=== PATIENT | male | born 1995 | race African-American/Black ===

== ENCOUNTER 2020-10-30 08:15 | Emergency (ER) | payer SELFPAY ==
[2020-10-30 08:30] VITALS: BP 115/67; PULSE 73
[2020-10-30] MEDS ORDERED: Lidocaine 1% 10 ML MDV INJECT ONE (08:54)
--- NOTE | 2020-10-30 08:55 | EDM.PDOC ---
ED HPI GENERAL MEDICAL PROBLEM - General Chief Complaint: Laceration Stated Complaint: L HAND LAC Time Seen by Provider: 10/30/20 08:54 Source of Information: Reports: Patient History Limitations: Reports: No Limitations - History of Present Illness INITIAL COMMENTS - FREE TEXT/NARRATIVE: 25-year-old male of descent presents to the ED with an acute laceration to his left hand in the webspace between the thumb and index finger. He was opening a tin can with a knife and is not sure which one of them created the laceration I suspect it was the knife. Wound continues to actively bleed. Injury occurred rate around 0800 hrs. this morning. He describes no other injuries. Tetanus toxoid is up-to-date. Onset: Today, Sudden Onset Date: 10/30/20 Onset Time: 07:55 Duration: Minutes: Location: Reports: Upper Extremity, Left (Laceration first webspace ) Quality: Reports: Ache (left hand between index finger and thumb.) Severity: Mild Improves with: Reports: None Worsens with: Reports: None Context: Reports: Trauma. Denies: Activity, Exercise, Lifting, Sick Contact Associated Symptoms: Reports: No Other Symptoms (Slipped with a knife while opening a tin can.) Treatments SKI PATROL: Reports: Other (see below) (None.) Left Finger-Thumb Pain Score (Numeric/FACES): 7 - Related Data Allergies Allergy/AdvReac Type Severity Reaction Status Date / Time No Known Allergies Allergy Verified 10/30/20 08:24 Home Meds: Home Meds Bacitracin [Bacitracin Oint] 15 gm .XX DAILY #1 tube 10/30/20 [Rx] Past Medical History - Past Health History Medical/Surgical History: Denies Medical/Surgical History HEENT History: Reports: None Cardiovascular History: Reports: None Respiratory History: Reports: None Gastrointestinal History: Reports: None Genitourinary History: Reports: None Musculoskeletal History: Reports: None Neurological History: Reports: None Psychiatric History: Reports: None Endocrine/Metabolic History: Reports: None Hematologic History: Reports: None Immunologic History: Reports: None Oncologic (Cancer) History: Reports: None Dermatologic History: Reports: None - Infectious Disease History Infectious Disease History: Reports: None Social & Family History - Family History Family Medical History: No Pertinent Family History - Tobacco Use Tobacco Use Status *Q: Current Every Day Tobacco User Years of Tobacco use: 15 Packs/Tins Daily: 1 - Caffeine Use Caffeine Use: Reports: Coffee, Energy Drinks, Tea - Recreational Drug Use Recreational Drug Use: Yes Drug Use in Last 12 Months: Yes Recreational Drug Type: Reports: Marijuana/Hashish Recreational Drug Use Frequency: Socially - Living Situation & Occupation Living situation: Reports: Single Occupation: Unemployed ED ROS GENERAL - Review of Systems Review Of Systems: See Below Constitutional: Denies: Fever, Chills, Malaise, Weakness, Fatigue HEENT: Reports: No Symptoms Respiratory: Reports: No Symptoms Cardiovascular: Reports: No Symptoms Endocrine: Reports: No Symptoms GI/Abdominal: Reports: No Symptoms : Reports: No Symptoms Musculoskeletal: Reports: No Symptoms Skin: Reports: No Symptoms Neurological: Reports: No Symptoms Psychiatric: Reports: No Symptoms Hematologic/Lymphatic: Reports: No Symptoms Immunologic: Reports: No Symptoms ED EXAM, SKIN/RASH Exam: See Below Exam Limited By: No Limitations General Appearance: Alert, WD/WN, Moderate Distress, Other (Temperature is 36.4 C. Heart rate 73 and sinus. Respiratory it is 20 with O2 sats of 98% room air BP 115/67) Eye Exam: Bilateral Eye: Normal Inspection, PERRL (No blepharal pallor or scleral icterus.) Respiratory/Chest: No Respiratory Distress, Lungs Clear, Normal Breath Sounds, No Accessory Muscle Use, Respiratory Distress Cardiovascular: Normal Peripheral Pulses, Regular Rate, Rhythm, No Edema, No Gallop, No Murmur, No Rub Peripheral Pulses: 3+: Carotid (L), Carotid (R), Posterior Tibial (L), Posterior Tibial (R), Dorsalis Pedis (L), Dorsalis Pedis (R) GI/Abdominal: Normal Bowel Sounds, Soft, Non-Tender, No Organomegaly, No Mass, Pelvis Stable Extremities: Other (Examination of the left hand reveals a stab wound measuring approximate 2.5 cm in the webspace between the first and second digits left hand.) Neurological: Alert, Oriented ( Wound is actively bleeding suggesting an arterial bleed.), CN II-XII Intact, Normal Cognition Psychiatric: Anxious Skin: Warm, Dry, Intact, Normal Color, No Rash Location, Skin: Lower Extremity, Left (Left hand) ED SKIN PROCEDURES - Laceration/Wound Repair Left Hand Appearance: Subcutaneous, Stellate, Clean, Other (Wound was in between the first and second digits i.e. in the webspace left hand) Distal NVT: Neuro & Vascular Intact, No Tendon Injury Anesthetic Type: Local Local Anesthesia - Lidocaine (Xylocaine): 1% Plain Local Anesthetic Volume: Other Skin Prep: Saline (8 cc) Exploration/Debridement/Repair: Wound Explored Closed with: Sutures Lac/Wound length In cm: 3.0 Suture Size: 4-0 # of Sutures: 7 Suture Type: Nylon, Interrupted, Simple Course - Vital Signs Last Recorded V/S: Last Vital Signs Temp 36.4 C 10/30/20 08:28 Pulse 73 10/30/20 08:28 Resp 20 10/30/20 08:28 BP 115/67 10/30/20 08:28 Pulse Ox 98 10/30/20 08:28 - Orders/Labs/Meds Meds: Medications Discontinued Medications Generic Name Dose Route Start Last Admin Trade Name Radha PRN Reason Stop Dose Admin Lidocaine HCl 10 ml 10/30/20 08:54 10/30/20 09:16 Xylocaine 1% INJECT 10/30/20 08:55 10 ml ONETIME ONE Administration - Radiology Interpretation Free Text/Narrative:: 25-year-old male presents to the ED with an acute laceration to the left hand in the webspace between the first and second digits. Wound is actively bleeding suggesting an arterial bleed has occurred. Plan wound will be anesthetized with lidocaine 0.1%. Departure - Departure Time of Disposition: 09:38 Disposition: Home, Self-Care 01 Condition: Fair Clinical Impression: Laceration of hand Qualifiers: Encounter type: initial encounter Foreign body presence: without foreign body Laterality: left Qualified Code(s): S61.412A - Laceration without foreign body of left hand, initial encounter - Discharge Information *PRESCRIPTION DRUG MONITORING PROGRAM REVIEWED*: Not Applicable *COPY OF PRESCRIPTION DRUG MONITORING REPORT IN PATIENT ARUN: Not Applicable Prescriptions: Bacitracin [Bacitracin Oint] 15 gm .XX DAILY #1 tube Referrals: PCP,None [Primary Care Provider] - Forms: ED Department Discharge Additional Instructions: Evaluation in the emergency room this morning in regards to a deep laceration to the webspace between the first and second fingers of your left hand. Laceration appears to have occurred from sharp 10 lid of a can you were opening with a knife. Wound was cleansed and then anesthetized with 1% lidocaine and sutured x7 to provide wound closure. Total length of wound was 3 cm. Treatment at home is to daily cleanse the wound with soap and water. Showering is okay. Wound should not be soaked underwater until sutures are removed. Apply topical antibiotic such as bacitracin or Polysporin to the wound and cover with a bandage to keep clean. Sutures will need to be removed in 10 days time. Please make an appoint with your primary care provider or 10 walk-in clinic for suture removal. Return to medical care sooner if any signs of infection occurring such as increased pain, swelling, redness. Sepsis Event Note (ED) - Evaluation Sepsis Screening Result: No Definite Risk - Focused Exam Vital Signs: Vital Signs Temp Pulse Resp BP Pulse Ox 10/30/20 08:28 36.4 C 73 20 115/67 98
== END 2020-10-30 09:53 | disposition home or self-care (01) ==
LOC: JD.ED 08:15
DX: S61.412A Laceration without foreign body of left hand, initial encounter (principal); Z72.0 Tobacco use; W26.0XXA Contact with knife, initial encounter
CPT/HCPCS: 12001; 12002; 99282; 99282-25